=== PATIENT | female | born 1975 | race African-American/Black ===

== ENCOUNTER → 2018-11-16 | Outpatient (CLI) | payer BC ==
--- NOTE | 2018-11-16 15:08 | RAD ---
EXAM: MRI right shoulder Without contrast DATE: 11/16/2018 1:00 PM COMPARISON: None INDICATION: Right shoulder pain TECHNIQUE: Multiplanar, multisequence MRI of the right shoulder was performed without contrast. FINDINGS: Mild AC joint degenerative changes are seen. Small inferior projecting osteophytes. Mild subacromial-subdeltoid bursal distention likely bursitis. There is a focal full-thickness tear of the supraspinous tendon measuring 4 mm in AP dimension within the mid-posterior fibers of the supraspinatus approximately 1.5 cm from the attachment. Moderate thickening and increased signal of the subscapularis tendon consistent with moderate tendinosis. Rotator cuff muscle signal and bulk is normal. No fatty atrophy. A few prominent right axillary lymph nodes are partially profiled, uncertain clinical significance measuring up to 2.1 x 1.3 cm. These may be physiologic or reactive as there is suggestion of central fatty hilum. Within the constraints of this nonarthrographic exam, no discrete labral tear is identified. The intra-articular long head biceps tendon are normal in signal and morphology. No tendinosis. No evidence for fracture or osteonecrosis. Articular cartilage is grossly preserved. IMPRESSION: 1. Focal full-thickness tear of the supraspinatus tendon without fatty atrophy. Associated subacromial-subdeltoid bursitis. 2. Moderate subscapularis tendinosis. 3. A few prominent right axillary lymph nodes are of uncertain clinical significance, may be physiologic or reactive given suggestion of fatty hilum. 4. AC joint osteoarthritis. Electronically signed by: Gareth Crowell MD (11/16/2018 3:05 PM) [id number]
== END | disposition home or self-care (01) ==
LOC: MRI 12:40
PROVIDERS: ATTEND Nurse Practitioner
DX: S46.011A Strain of muscle(s) and tendon(s) of the rotator cuff of right shoulder, initial encounter (principal); M19.011 Primary osteoarthritis, right shoulder; M75.51 Bursitis of right shoulder; M75.91 Shoulder lesion, unspecified, right shoulder; M25.711 Osteophyte, right shoulder; X58.XXXA Exposure to other specified factors, initial encounter; Y93.89 Activity, other specified; Y92.89 Other specified places as the place of occurrence of the external cause; Y99.8 Other external cause status
CPT/HCPCS: 73221